=== PATIENT | male | born 1945 | race Caucasian/White ===

== ENCOUNTER 2020-01-28 11:10 | Inpatient (IN) | payer MEDICARE, OTHER ==
[2020-01-28] MEDS ORDERED: Acetaminophen 325 MG Tab PO ONE (11:18)
[2020-01-28] MEDS ORDERED: Budesonide 0.5 MG/2 ML Neb Susp NEB ONE (11:18)
--- NOTE | 2020-01-28 11:18 | EDM.PDOC ---
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 11:11 37.6 C 88 24 H 157/87 H 94 L - Problem List & Annotations (1) Chest pain SNOMED Code(s): 85700863 Code(s): R07.9 - CHEST PAIN, UNSPECIFIED Status: Acute Priority: High Current Visit: Yes Onset Date: 01/28/20 Annotation/Comment:: Nonspecific uli st pain type symptoms as above with chest pain protocol not initially started, however chest pain protocol subsequently initiated after troponin iron results were obtained. No true chest pain type symptoms at time of admission. Note previous extensive work-up at the [facility] in 2016 by their history. Initiate standard rule out OK orders. Cardiology consultation depending on his clinical course. Qualifiers: Chest pain type: precordial pain Qualified Code(s): R07.2 - Precordial pain (2) Pneumonia SNOMED Code(s): 547200673 Code(s): J18.9 - PNEUMONIA, UNSPECIFIED ORGANISM Status: Acute Priority: High Current Visit: Yes Onset Date: ~01/24/20 Annotation/Comment:: Possible right perihilar and right middle lobe pneumonia by today's chest x-ray. Various therapeutic options were discussed with the patient and his daughter, who initially refused, however now agree to hospitalization secondary to need for rule out OK as above. IV Rocephin given in the emergency room with continuation of oral doxycycline, which was initiated by the patient on his own this morning as above. Sputum specimen to be collected GALINA. Patient refused Pulmicort nebulizer treatment as below. Nebulizer treatments to be initiated in negative pressure room with influenza and COVID-19 screen was to be conducted immediately prior to admission. Qualifiers: Pneumonia type: due to unspecified organism Laterality: right Lung location: middle lobe of lung Qualified Code(s): J18.9 - Pneumonia, unspecified organism (3) COPD (chronic obstructive pulmonary disease) SNOMED Code(s): 23118368 Code(s): J44.9 - CHRONIC OBSTRUCTIVE PULMONARY DISEASE, UNSPECIFIED Status: Acute Priority: High Current Visit: Yes Onset Date: 11/27/15 Annotation/Comment:: Patient refused Pulmicort nebulizer treatment secondary to possible questionable intolerance to this medication in the past. He was requesting IV Solu-Medrol therapy, however this will be delayed at this time secondary to possible interference with follow-up CBC. Qualifiers: COPD type: COPD with acute exacerbation Qualified Code(s): J44.1 - Chronic obstructive pulmonary disease with (acute) exacerbation (4) D-dimer, elevated SNOMED Code(s): 184046812 Code(s): R79.89 - OTHER SPECIFIED ABNORMAL FINDINGS OF BLOOD CHEMISTRY Status: Chronic Priority: Medium Current Visit: Yes Onset Date: 01/28/20 Annotation/Comment:: Mild D-dimer elevation without clinical evidence of DVT or PE. Note negative distant CTA of the chest with consideration of venous Doppler studies of the lower extremities and possible repeat CT of the chest depending on his clinical course. Subcu Lovenox initiated on admission. (5) Hypertension SNOMED Code(s): 86270524 Code(s): I10 - ESSENTIAL (PRIMARY) HYPERTENSION Status: Chronic Priority: High Current Visit: Yes Annotation/Comment:: Somewhat elevated in the emergency room, however improved prior to discharge. Continue to observe closely by his regular provider. Qualifiers: Hypertension type: essential hypertension Qualified Code(s): I10 - Essential (primary) hypertension (6) Aortic valve stenosis SNOMED Code(s): 98754224 Code(s): I35.0 - NONRHEUMATIC AORTIC (VALVE) STENOSIS Status: Chronic Priority: Medium Current Visit: Yes Annotation/Comment:: Apparent extensive cardiac work-up at the [facility] in 2016 by their history. Observe for now. Possible additional mitral valve insufficiency by today's clinical exam. Qualifiers: Cardiac valve disease etiology: nonrheumatic Qualified Code(s): I35.0 - N onrheumatic aortic (valve) stenosis (7) Hyperlipidemia SNOMED Code(s): 53168563 Code(s): E78.5 - HYPERLIPIDEMIA, UNSPECIFIED Status: Chronic Priority: Medium Current Visit: Yes Annotation/Comment:: Currently under therapy Qualifiers: Hyperlipidemia type: unspecified Qualified Code(s): E78.5 - Hyperlipidemia, unspecified (8) Osteoarthritis SNOMED Code(s): 296613287 Code(s): M19.90 - UNSPECIFIED OSTEOARTHRITIS, UNSPECIFIED SITE Status: Chronic Priority: Medium Current Visit: Yes Annotation/Comment:: Stable by history Qualifiers: Osteoarthritis location: multiple joints Osteoarthritis type: primary Qualified Code(s): M89.49 - Other hypertrophic osteoarthropathy, multiple sites - Problem List Review Problem List Initiated/Reviewed/Updated: Yes - My Orders Last 24 Hours: My Active Orders 01/28/20 Breakfast Nothing Per Oral Diet [DIET] 01/28/20 11:18 Cardiac Monitoring [RC] PRN Communication Order [RC] ROUTINE Oxygen Therapy, ED [RC] PRN Pulse Oximetry [RC] CONTINUOUS Up With Assistance [RC] ASDIRECTED Chest 1V Frontal [CR] Stat CULTURE SPUTUM + SMEAR [RM] Urgent Sodium Chloride 0.9% [Saline Flush] 10 ml FLUSH ASDIRECTED PRN Blood Culture x2 Reflex Set [OM.PC] Stat Obtain Past Medical Record [OM.PC] Stat Peripheral IV Insertion Adult [OM.PC] Stat Resuscitation Status Routine 01/28/20 11:20 CULTURE BLOOD [BC] Stat 01/28/20 11:21 EKG Documentation Completion [RC] ASDIRECTED Peripheral IV Care [RC] . DIRECTED 01/28/20 11:30 CULTURE BLOOD [BC] Stat 01/28/20 13:04 INFLUENZA A+B AG SCREEN [RM] Stat Isolation [COMM] Routine 01/28/20 13:28 CORONAVIRUS COVID-19 PCR PHL Routine - Assessment/Plan Admission H&P: Please use this note as an admission H&P Last 24 Hours: My Active Orders 01/28/20 Breakfast Nothing Per Oral Diet [DIET] 01/28/20 11:18 Cardiac Monitoring [RC] PRN Communication Order [RC] ROUTINE Oxygen Therapy, ED [RC] PRN Pulse Oximetry [RC] CONTINUOUS Up With Assistance [RC] ASDIRECTED Chest 1V Frontal [CR] Stat CULTURE SPUTUM + SMEAR [RM] Urgent Sodium Chloride 0.9% [Saline Flush] 10 ml FLUSH ASDIRECTED PRN Blood Culture x2 Reflex Set [OM.PC] Stat Obtain Past Medical Record [OM.PC] Stat Peripheral IV Insertion Adult [OM.PC] Stat Resuscitation Status Routine 01/28/20 11:20 CULTURE BLOOD [BC] Stat 01/28/20 11:21 EKG Documentation Completion [RC] ASDIRECTED Peripheral IV Care [RC] . DIRECTED 01/28/20 11:30 CULTURE BLOOD [BC] Stat 01/28/20 13:04 INFLUENZA A+B AG SCREEN [RM] Stat Isolation [COMM] Routine 01/28/20 13:28 CORONAVIRUS COVID-19 PCR PHL Routine Assessment:: As above Plan: As above. Extensive precautions were given to the patient and his daughter, who are in agreement with the treatment plan. The patient will require about 3-4 days of inpatient/acute care secondary to multiple health problems as above.
[2020-01-28 11:51] LABS: PTT,PARTIAL THROMBOPLSTIN TIME 26.5 SEC (24.5-32.8)
[2020-01-28 12:07] LABS: CHLORIDE,CL 100 mmol/L (98-107); SODIUM,NA 137 mmol/L (136-145)
[2020-01-28] MEDS ORDERED: cefTRIAXone 1 GM in Sodium Chloride 0.9% 100 ML IV ONE (12:39)
[2020-01-28] MEDS ORDERED: Ticagrelor 90 MG Tab PO ONE (12:51)
[2020-01-28] MEDS ORDERED: Aspirin 81 MG Tab.Chew CHEW ONE (12:51)
[2020-01-28] MEDS: Sodium Chloride 0.9% 10 ML Syringe FLUSH PRN ×2 (12:52→15:45)
[2020-01-28] MEDS ORDERED: Rosuvastatin 10 MG Tab PO SCH (14:19)
[2020-01-28] MEDS ORDERED: Acetaminophen 325 MG Tab PO PRN (14:22)
[2020-01-28] MEDS ORDERED: Sodium Chloride 0.9% 10 ML Syringe FLUSH PRN (14:22)
[2020-01-28] MEDS ORDERED: Temazepam 15 MG Cap PO PRN (14:22)
[2020-01-28] MEDS ORDERED: Albuterol 0.083% 2.5 MG/3 ML Neb Soln INH PRN ×2 (14:25→14:31)
[2020-01-28] MEDS ORDERED: Albuterol/Ipratropium 3.0-0.5 MG/3 ML Neb Soln NEB PRN (14:25)
[2020-01-28] MEDS ORDERED: LORazepam 2 MG/ML SDV IVPUSH ONE (14:26)
[2020-01-28] MEDS ORDERED: Iopamidol 755 Mg/ML 100 ML Bottle IVPUSH STA (14:27)
[2020-01-28] MEDS ORDERED: Famotidine 20 MG/2 ML SDV IVPUSH ONE (14:30)
[2020-01-28] MEDS ORDERED: Morphine 2 MG/ML SYRINGE PRN (14:35)
[2020-01-28] MEDS ORDERED: Enoxaparin 80 MG/0.8 ML Syringe SUBCUT SCH (15:00)
[2020-01-28 15:14] VITALS: BP 137/75; PULSE 71
--- NOTE | 2020-01-28 15:59 | PCM.SN.2 ---
- Free Text/Narrative Note: Shortly after admission the patient began experiencing some nonspecific retro- sternal chest pressure associated with some dyspnea with repeat EKG at 15:11 hours showing no specific change from previous EKG at 11:13 hours in the emergency room. His symptoms were somewhat improved after a morphine nebulizer treatment with stable vital signs and O2 saturations on room air. Anxiety component both in the patient and his daughter with the patient not tolerating low-dose IV Ativan, which was only partially given secondary to patient feeling strange and pale? They are requesting transfer to [place] for further treatment and evaluation. Per their request the scheduled CTA of the chest for his borderline d-dimer elevation was also canceled. Telephone consultation at 15:[address] Wagner, emergency room physician at [facility] in [place], who does agree to accept the patient for direct admission, with no further treatment recommendations given. He also agrees to contact the hospitalist concerning this hospital transfer. Ambulance transfer with manual arts therapist accompaniment. Vital signs and physical exam were stable at time of transfer. Note that the patient has already received subcu Lovenox at the VTE treatment dose with additional IV Pepcid as GI prophylaxis. Cardiac enzymes are due to be repeated at time of patient's arrival to [place] with the hospitalist to decide at that time whether he will order a CTA of the chest. Consider venous Doppler studies of the lower extremities, which had been ordered to be performed in our facility tomorrow morning secondary to lack of door technician availability today. Extensive precautions were given to the patient and his daughter, who are in agreement with the treatment plan. Note negative influenza screen with COVID-19 screen results not available for about 2-3 days secondary to send out study. Likely rapid COVID-19 screen at time of arrival of the patient to [place]. Isolation procedures were continued throughout his care in this facility, patient transfer, etc. Microbiology 01/28/20 13:40 Influenza Type A Antigen Screen - Final Nasal, Left NEGATIVE INFLUENZA A VIRUS AG REFERENCE RANGE: NEGATIVE Influenza Type B Antigen Screen - Final NEGATIVE INFLUENZA B VIRUS AG REFERENCE RANGE: NEGATIVE
[2020-01-28] MEDS ORDERED: Lactobacillus Rhamnosus GG (Probiotic) Cap PO SCH (18:00)
[2020-01-28] MEDS ORDERED: Dextromethorphan/guaiFENesin 600-30 MG Tab.ER PO SCH (18:00)
[2020-01-28] MEDS ORDERED: Non-Formulary Medication 1 Each (Fluticasone/Salmeterol 1 PUFF) INH SCH (18:00)
[2020-01-28] MEDS ORDERED: Atenolol 25 MG Tab PO SCH (18:00)
[2020-01-28] MEDS ORDERED: Acetaminophen 325 MG Tab PO SCH (20:00)
[2020-01-28] MEDS ORDERED: Doxycycline 100 MG Cap PO SCH (20:00)
[2020-01-28] MEDS ORDERED: Albuterol/Ipratropium 3.0-0.5 MG/3 ML Neb Soln NEB SCH (20:00)
[2020-01-29] MEDS ORDERED: cefTRIAXone 1 GM in Sodium Chloride 0.9% 100 ML IV SCH (02:00)
[2020-01-29] MEDS ORDERED: Losartan 50 MG Tab PO SCH (08:00)
[2020-01-29] MEDS ORDERED: amLODIPine 5 MG Tab PO SCH (08:00)
[2020-01-29] MEDS ORDERED: Famotidine 20 MG/2 ML SDV IVPUSH SCH (12:00)
== END 2020-01-28 16:00 | DRG 190 ==
LOC: LL.ED 11:10 → UNDOADMIN 13:39 → LL.MS 13:39 → UNDODISIN 16:00
PROVIDERS: ADMIT Family Medicine; ATTEND Family Medicine
PROC: 8E0ZXY6 Isolation (ICD-10-PCS; principal; 2020-01-28)
DX: J44.1 Chronic obstructive pulmonary disease with (acute) exacerbation (principal); J44.9 Chronic obstructive pulmonary disease, unspecified; I10 Essential (primary) hypertension; J18.9 Pneumonia, unspecified organism; F41.8 Other specified anxiety disorders; Z88.8 Allergy status to other drugs, medicaments and biological substances; Z91.018 Allergy to other foods; R79.1 Abnormal coagulation profile; R07.9 Chest pain, unspecified; Z91.09 Other allergy status, other than to drugs and biological substances; Z79.899 Other long term (current) drug therapy; E78.00 Pure hypercholesterolemia, unspecified; Z79.82 Long term (current) use of aspirin; J30.9 Allergic rhinitis, unspecified; I42.9 Cardiomyopathy, unspecified; I73.9 Peripheral vascular disease, unspecified; H91.90 Unspecified hearing loss, unspecified ear; H54.7 Unspecified visual loss; Z99.81 Dependence on supplemental oxygen; H91.13 Presbycusis, bilateral; I35.0 Nonrheumatic aortic (valve) stenosis; I34.0 Nonrheumatic mitral (valve) insufficiency; Z87.01 Personal history of pneumonia (recurrent); K59.09 Other constipation; K21.9 Gastro-esophageal reflux disease without esophagitis; Z87.11 Personal history of peptic ulcer disease; G62.9 Polyneuropathy, unspecified; F10.21 Alcohol dependence, in remission; N40.0 Benign prostatic hyperplasia without lower urinary tract symptoms; N18.9 Chronic kidney disease, unspecified; M19.90 Unspecified osteoarthritis, unspecified site; G89.29 Other chronic pain; Z20.828 Contact with and (suspected) exposure to other viral communicable diseases; M54.9 Dorsalgia, unspecified; M54.2 Cervicalgia; F41.9 Anxiety disorder, unspecified; F32.9 Major depressive disorder, single episode, unspecified; Z87.891 Personal history of nicotine dependence; E78.5 Hyperlipidemia, unspecified
CPT/HCPCS: 36415; 71045; 80053; 82550; 82553; 83605; 83735; 83880; 84443; 84484; 85025; 85379; 85610; 85730; 87040; 87804; 93005; 94640; 96365; 99235; 99285-25; A9270-GY; J0696; J1650; J2060; J3490; J7050; J7613-GY; J7620-GY; U0002

== ENCOUNTER 2021-08-05 11:38 | Emergency (ER) | payer MEDICARE, OTHER ==
[2021-08-05 12:46] LABS: ANION GAP 9.7 meq/L (7-15); CHLORIDE,CL 105 mmol/L (98-107); SODIUM,NA 140 mmol/L (136-145)
[2021-08-05] MEDS ORDERED: Sodium Chloride 0.9% 10 ML Syringe FLUSH PRN (12:53)
[2021-08-05] MEDS ORDERED: Iopamidol 612 MG/ML 100 ML Bottle IVPUSH ONE (13:12)
[2021-08-05 13:20] VITALS: BP 149/69; PULSE 71
== END 2021-08-05 15:58 | disposition home or self-care (01) ==
LOC: LL.ED 11:38
DX: J44.1 Chronic obstructive pulmonary disease with (acute) exacerbation (principal); R04.2 Hemoptysis; R91.8 Other nonspecific abnormal finding of lung field; E78.00 Pure hypercholesterolemia, unspecified; I11.9 Hypertensive heart disease without heart failure; N40.0 Benign prostatic hyperplasia without lower urinary tract symptoms; Z91.018 Allergy to other foods; Z88.8 Allergy status to other drugs, medicaments and biological substances; Z87.891 Personal history of nicotine dependence; Z20.822 Contact with and (suspected) exposure to COVID-19
CPT/HCPCS: 36415; 71260; 80053; 83880; 84443; 84484; 85025; 85379; 85610; 93005; 93010; 99284; 99285-25; Q9967; U0002

== ENCOUNTER 2022-09-09 19:09 | Inpatient (IN) | payer MEDICARE, OTHER ==
[2022-09-09] MEDS ORDERED: Sodium Chloride 0.9% 10 ML Syringe FLUSH PRN (19:44)
[2022-09-09] MEDS ORDERED: Sodium Chloride 0.9% 1,000 ML IV ONE (19:44)
[2022-09-09] MEDS: Cefepime 2 GM in Sodium Chloride 0.9% 100 ML IV SCH (20:21)
[2022-09-09 20:25] LABS: ANION GAP 5.4 meq/L (7-15)
[2022-09-09] MEDS ORDERED: Ondansetron 4 MG/2 ML SDV IVPUSH PRN ×2 (22:24→23:18)
[2022-09-09] MEDS ORDERED: oxyCODONE ER 10 MG TAB.ER PO ONE (23:01)
[2022-09-09] MEDS ORDERED: Polyethylene Glycol 3350 Powder 17 GM Packet PO PRN (23:18)
[2022-09-09] MEDS ORDERED: oxyCODONE 5 MG Tab PO PRN (23:18)
[2022-09-09] MEDS ORDERED: Albuterol/Ipratropium 3.0-0.5 MG/3 ML Neb Soln INH PRN (23:21)
[2022-09-09] MEDS ORDERED: Temazepam 15 MG Cap PO PRN (23:21)
[2022-09-09] MEDS ORDERED: Cyanocobalamin (Vitamin B12) 1,000 MCG Tab PO SCH (23:30)
[2022-09-09] MEDS ORDERED: Rosuvastatin 10 MG Tab PO SCH (23:30)
[2022-09-10] MEDS: Acetaminophen 325 MG Tab PO PRN ×2 (00:24→10:16)
[2022-09-10] MEDS: Sucralfate 1 GM Tab PO SCH ×2 (00:53→08:48)
[2022-09-10] MEDS ORDERED: fentaNYL 50 MCG/ML SDV IVPUSH PRN (00:56)
[2022-09-10] MEDS: Cefepime 2 GM in Sodium Chloride 0.9% 100 ML IV SCH (03:48)
[2022-09-10] MEDS ORDERED: Losartan 50 MG Tab PO SCH (08:00)
[2022-09-10] MEDS ORDERED: Metoprolol Succinate 25 MG Tab.ER PO SCH (08:00)
[2022-09-10] MEDS ORDERED: amLODIPine 5 MG Tab PO SCH (08:00)
[2022-09-10] MEDS ORDERED: Non-Formulary Medication 1 Each (Fluticasone/Umeclidin/Vilanter [Trelegy Ellipta 200-62.5- IH SCH (08:00)
[2022-09-10 08:04] LABS: ANION GAP 6.3 meq/L (7-15)
[2022-09-10] MEDS ORDERED: Lactated Ringers 1,000 ML IV SCH (10:30)
[2022-09-10 10:37] VITALS: BP 95/58; PULSE 97
== END 2022-09-10 11:14 | DRG 808 ==
LOC: LL.ED 19:09 → LL.MS 21:00
PROVIDERS: ADMIT Hospitalist; ATTEND Emergency Medicine
DX: D70.2 Other drug-induced agranulocytosis (principal); J18.9 Pneumonia, unspecified organism; J96.21 Acute and chronic respiratory failure with hypoxia; C34.90 Malignant neoplasm of unspecified part of unspecified bronchus or lung; D84.9 Immunodeficiency, unspecified; J44.0 Chronic obstructive pulmonary disease with (acute) lower respiratory infection; R50.81 Fever presenting with conditions classified elsewhere; G89.3 Neoplasm related pain (acute) (chronic); D63.0 Anemia in neoplastic disease; E78.2 Mixed hyperlipidemia; G47.00 Insomnia, unspecified; K59.09 Other constipation; K21.9 Gastro-esophageal reflux disease without esophagitis; N40.0 Benign prostatic hyperplasia without lower urinary tract symptoms; I12.9 Hypertensive chronic kidney disease with stage 1 through stage 4 chronic kidney disease, or unspecified chronic kidney disease; N18.9 Chronic kidney disease, unspecified; E78.5 Hyperlipidemia, unspecified; I73.9 Peripheral vascular disease, unspecified; F41.8 Other specified anxiety disorders; Z79.1 Long term (current) use of non-steroidal anti-inflammatories (NSAID); Z79.899 Other long term (current) drug therapy; Z86.010 Personal history of colon polyps; Z79.52 Long term (current) use of systemic steroids; Z88.8 Allergy status to other drugs, medicaments and biological substances; Z91.02 Food additives allergy status; Z97.3 Presence of spectacles and contact lenses; Z87.01 Personal history of pneumonia (recurrent); Z99.81 Dependence on supplemental oxygen; Z87.09 Personal history of other diseases of the respiratory system; Z87.19 Personal history of other diseases of the digestive system; Z87.81 Personal history of (healed) traumatic fracture; Z98.890 Other specified postprocedural states; Z87.891 Personal history of nicotine dependence; T45.1X5A Adverse effect of antineoplastic and immunosuppressive drugs, initial encounter; Y92.89 Other specified places as the place of occurrence of the external cause
CPT/HCPCS: 36415; 71046; 80048; 80053; 81001; 83605; 83880; 84484; 85025; 85027; 86140; 87040; 93005; 93010; 96365; 99285-25; A9270-GY; J0692; J2405; J3490; J7120

== ENCOUNTER 2023-11-22 16:08 | Inpatient (IN) | payer MEDICARE, OTHER ==
[2023-11-22] MEDS ORDERED: Nitroglycerin 0.4 MG Tab.SL SL PRN (16:10)
[2023-11-22] MEDS: Aspirin 81 MG Tab.Chew PO ONE (16:15)
[2023-11-22 16:26] LABS: BASOPHILS ABSOLUTE AUTO 0.01 K/uL (0.00-0.20); BASOPHILS PERCENT AUTO 0.1 % (0.0-2.0); EOSINOPHILS ABSOLUTE AUTO 0.15 K/uL (0.00-0.50); HEMATOCRIT 40.8 % (39.0-49.0); HEMOGLOBIN 13.2 g/dL (13.1-16.8); LYMPHOCYTES PERCENT AUTO 11.7 % (10.0-50.0); MEAN CORPUSCULAR HEMOGLOBIN 29.7 pg (28.2-33.3); MEAN CORPUSCULAR HGB CONC 32.4 g/dL (31.7-36.0); MEAN CORPUSCULAR VOLUME 91.9 fL (84.0-98.0); MONOCYTES ABSOLUTE AUTO 0.86 K/uL (0.00-1.00); MONOCYTES PERCENT AUTO 11.2 % (2.0-14.0); NEUTROPHILS ABSOLUTE AUTO 5.75 K/uL (1.40-7.00); PLATELET COUNT,PLT 143 K/uL (150-350); RED BLOOD CELL COUNT 4.44 M/uL (4.33-5.41); RED CELL DISTRIBUTION WIDTH 14.4 % (11.2-14.1); WHITE BLOOD CELL COUNT,WBC 7.7 K/uL (4.0-10.2)
[2023-11-22 16:49] LABS: ALANINE AMINOTRANSFERASE,ALT 24 U/L (12-78); ALBUMIN 3.6 g/dL (3.4-5.0); ALKALINE PHOSPHATASE 73 IU/L (46-116); ANION GAP 7.9 meq/L (7-15); ASPARTATE AMNIOTRANSFERASE,AST 14 U/L (15-37); BILIRUBIN TOTAL 0.5 mg/dL (0.2-1.0); BLOOD UREA NITROGEN,BUN 23 mg/dL (7-18); CALCIUM 8.1 mg/dL (8.5-10.1); CARBON DIOXIDE,CO2 28.1 mmol/L (21.0-32.0); CHLORIDE,CL 103 mmol/L (98-107); ESTIMATED GFR 69 mL/min (>=60); GLUCOSE RANDOM 103 mg/dL (70-99); LIPASE 20 U/L (16-77); MAGNESIUM 2.1 mg/dL (1.8-2.4); POTASSIUM,K 3.9 mmol/L (3.5-5.1); PROTEIN TOTAL,TP 6.8 g/dL (6.4-8.2); SODIUM,NA 139 mmol/L (136-145)
[2023-11-22 16:52] LABS: INR 1.1 (0.9-1.1)
[2023-11-22 17:06] LABS: PTT,PARTIAL THROMBOPLSTIN TIME 27.4 SEC (23.6-29.8)
[2023-11-22] MEDS ORDERED: [UNRECOGNIZED DRUG - OTHER] PO PRN (19:14)
[2023-11-22] MEDS: Temazepam 15 MG Cap PO PRN (21:34)
[2023-11-22] MEDS: Albuterol/Ipratropium 3.0-0.5 MG/3 ML Neb Soln INH PRN (21:34)
[2023-11-23] MEDS: Cetirizine 10 MG Tab PO SCH (07:14)
[2023-11-23] MEDS: Tamsulosin 0.4 MG Cap.ER PO SCH (07:14)
[2023-11-23] MEDS: Levothyroxine 25 MCG Tab PO SCH (07:15)
[2023-11-23] MEDS: Lutein/Minerals/Vitamin C/Vitamin E Acetate Cap PO SCH (07:16)
[2023-11-23] MEDS: Fish Oil/Omega-3 Fatty Acids 1 Gm Cap PO SCH (07:16)
[2023-11-23] MEDS: Levothyroxine 100 MCG Tab PO SCH (07:16)
[2023-11-23] MEDS: Sodium Chloride 0.9% 10 ML Syringe FLUSH PRN (07:20)
[2023-11-23] MEDS: Metoprolol Succinate 50 MG Tab.ER PO SCH (07:30)
[2023-11-23] MEDS ORDERED: Cholecalciferol (Vitamin D3) 10 MCG Tab PO SCH (08:00)
[2023-11-23] MEDS ORDERED: Metoprolol Succinate 25 MG Tab.ER PO SCH (08:00)
[2023-11-23] MEDS: FLUTICASONE INH SCH (12:24)
[2023-11-23] MEDS: UMECLIDIN INH SCH (12:24)
[2023-11-23] MEDS: VILANTER INH SCH (12:24)
[2023-11-23] MEDS: Acetaminophen 325 MG Tab PO PRN (14:18)
[2023-11-23 14:47] LABS: BASOPHILS ABSOLUTE AUTO 0.01 K/uL (0.00-0.20); BASOPHILS PERCENT AUTO 0.1 % (0.0-2.0); EOSINOPHILS ABSOLUTE AUTO 0.14 K/uL (0.00-0.50); HEMATOCRIT 41.3 % (39.0-49.0); HEMOGLOBIN 13.9 g/dL (13.1-16.8); LYMPHOCYTES ABSOLUTE AUTO 0.83 K/uL (0.50-3.50); LYMPHOCYTES PERCENT AUTO 11.7 % (10.0-50.0); MEAN CORPUSCULAR HEMOGLOBIN 29.9 pg (28.2-33.3); MEAN CORPUSCULAR HGB CONC 33.7 g/dL (31.7-36.0); MEAN CORPUSCULAR VOLUME 88.8 fL (84.0-98.0); MONOCYTES ABSOLUTE AUTO 1.03 K/uL (0.00-1.00); MONOCYTES PERCENT AUTO 14.5 % (2.0-14.0); NEUTROPHILS ABSOLUTE AUTO 5.09 K/uL (1.40-7.00); NEUTROPHILS PERCENT AUTO 71.7 % (45.0-80.0); RED BLOOD CELL COUNT 4.65 M/uL (4.33-5.41); RED CELL DISTRIBUTION WIDTH 14.3 % (11.2-14.1); WHITE BLOOD CELL COUNT,WBC 7.1 K/uL (4.0-10.2)
[2023-11-23 14:50] LABS: PLATELET COUNT,PLT 135 K/uL (150-350)
[2023-11-23 14:55] LABS: ALBUMIN 3.3 g/dL (3.4-5.0); ANION GAP 9.2 meq/L (7-15); BILIRUBIN TOTAL 0.6 mg/dL (0.2-1.0); CALCIUM 8.2 mg/dL (8.5-10.1); CARBON DIOXIDE,CO2 24.8 mmol/L (21.0-32.0); CREATININE 0.88 mg/dL (0.51-1.17); EST CRCL DRUG DOSING (CG) 73.68 mL/min; POTASSIUM,K 4.2 mmol/L (3.5-5.1); PROTEIN TOTAL,TP 6.9 g/dL (6.4-8.2)
[2023-11-23] MEDS: Aspirin 81 MG Tab.Chew PO ONE (17:00)
[2023-11-23 18:27] VITALS: BP 116/63; PULSE 96
[2023-11-24] MEDS ORDERED: Cyanocobalamin (Vitamin B12) 1,000 MCG Tab PO SCH (08:00)
[2023-11-24] MEDS ORDERED: Rosuvastatin 10 MG Tab PO SCH (08:00)
== END 2023-11-23 19:05 | DRG 313 ==
LOC: LL.ED 16:08 → LL.MS 18:51 → OBSVTOIN 11-23 13:26
PROVIDERS: ADMIT Physician Assistant; ATTEND Physician Assistant
DX: R07.89 Other chest pain (principal); R79.89 Other specified abnormal findings of blood chemistry; Z85.9 Personal history of malignant neoplasm, unspecified; Z92.3 Personal history of irradiation; I50.31 Acute diastolic (congestive) heart failure; I13.0 Hypertensive heart and chronic kidney disease with heart failure and stage 1 through stage 4 chronic kidney disease, or unspecified chronic kidney disease; I12.9 Hypertensive chronic kidney disease with stage 1 through stage 4 chronic kidney disease, or unspecified chronic kidney disease; N40.0 Benign prostatic hyperplasia without lower urinary tract symptoms; E78.00 Pure hypercholesterolemia, unspecified; J44.9 Chronic obstructive pulmonary disease, unspecified; K59.09 Other constipation; Z91.048 Other nonmedicinal substance allergy status; K21.9 Gastro-esophageal reflux disease without esophagitis; N18.9 Chronic kidney disease, unspecified; H54.7 Unspecified visual loss; M19.90 Unspecified osteoarthritis, unspecified site; H91.90 Unspecified hearing loss, unspecified ear; G89.29 Other chronic pain; M54.2 Cervicalgia; G43.909 Migraine, unspecified, not intractable, without status migrainosus; G62.9 Polyneuropathy, unspecified; F41.9 Anxiety disorder, unspecified; F32.A Depression, unspecified; E03.9 Hypothyroidism, unspecified; I25.2 Old myocardial infarction; Z91.018 Allergy to other foods; Z88.8 Allergy status to other drugs, medicaments and biological substances; Z79.51 Long term (current) use of inhaled steroids; Z79.899 Other long term (current) drug therapy; Z87.01 Personal history of pneumonia (recurrent); Z99.81 Dependence on supplemental oxygen; Z87.11 Personal history of peptic ulcer disease; Z87.81 Personal history of (healed) traumatic fracture; Z98.890 Other specified postprocedural states
CPT/HCPCS: 36415; 71045; 80053; 83690; 83735; 83880; 84484; 85025; 85610; 85730; 93005; 93308; 94640; 99285; A9270-GY; G0378; J3490; J7620-GY